=== PATIENT | male | born 1995 | race Two or more races ===

== ENCOUNTER 2019-07-11 23:19 | Emergency (ER) | payer SELFPAY ==
[~2019-07-11] VITALS: Ht 167.6 cm; Wt 68.9 kg
[2019-07-11 23:32] VITALS: BP 132/75
--- NOTE | 2019-07-11 23:34 | NUR ---
PT [facility] AND FRIENDS. C/O ETOH. PER FRIEND PT DRANK "A 40 OF BUDWEIRSER." PALCED ON MONIOTOR AND PULSE OX. ACCORDING TO FRIEND -ERIKA GRAHAM FRIEND KEPT HOLDING THE PT HE WOULD FALL. NO ACUTE DISTRESS NOTED. WILL CONTINUE TO MONITOR.
[2019-07-11 23:40] LABS: BASOPHILS % (AUTO) 0.4 % (0.0-2.0); EOSINOPHILS % (AUTO) 1.1 % (0.0-6.0); HEMATOCRIT 50 % (39-51); HEMOGLOBIN 17.1 g/dL (13.5-17.5); LYMPHOCYTES # (AUTO) 2.4 /CMM (0.8-4.8); MEAN CORPUSCULAR HGB CONC 34 g/dl (31.0-36.0); MEAN CORPUSCULAR VOLUME 90 fL (80-96); MONOCYTES # (AUTO) 0.9 /CMM (0.1-1.30); MONOCYTES % (AUTO) 15.6 % (2.0-12.0); NEUTROPHILS # (AUTO) 2.2 /CMM (1.8-8.9); NEUTROPHILS % (AUTO) 39.9 % (43.0-81.0); PLATELET COUNT (AUTO) 155 /CMM (150-450); RED BLOOD CELL COUNT(AUTO) 5.58 MIL/uL (4.5-6.0); WHITE BLOOD COUNT (AUTO) 5.6 K/uL (4.3-11.0)
[2019-07-11 23:47] LABS: CARBON DIOXIDE 21 mmol/L (21-32); CHLORIDE 105 mmol/L (98-107); CREATININE 0.7 mg/dL (0.6-1.3); GLUCOSE 95 mg/dL (74-106); POTASSIUM 3.3 mmol/L (3.5-5.1); SODIUM SERUM 141 mmol/L (136-145); UREA NITROGEN, BLOOD 11 mg/dL (7-18)
[2019-07-11 23:53] LABS: ALANINE AMINOTRANSFERASE 102 U/L (12-78); ALBUMIN 3.7 g/dL (3.4-5.0); ALCOHOL, BLOOD 412 mg/dL (0-0); ALKALINE PHOSPHATASE 100 U/L (46-116); ASPARTATE AMINOTRANSFERASE 99 U/L (15-37); BILIRUBIN,DIRECT 0.1 mg/dL (0.0-0.2); TOTAL PROTEIN, SERUM 8.4 g/dL (6.4-8.2)
[2019-07-11 23:55] LABS: SALICYLATE 1.1 mg/dL (2.8-20.0)
[2019-07-11 23:56] LABS: ACETAMINOPHEN < 2 ug/ml (10-30)
[2019-07-12 00:09] LABS: BILIRUBIN,TOTAL 0.4 mg/dL (0.2-1.0)
[2019-07-12 00:11] LABS: APPEARANCE,URINE Clear (CLEAR); BILIRUBIN,URINE Negative (NEGATIVE); BLOOD, URINE Trace-lysed Ery/uL (NEGATIVE); COLOR,URINE Yellow (YELLOW); KETONES,URINE Negative (NEGATIVE); LEUKOCYTE ESTERASE ,URINE Negative (NEGATIVE); NITRITE, URINE Negative (NEGATIVE); PROTEIN,URINE Negative (NEGATIVE); UGLUCOSE 100 MG/DL mg/dL (NEGATIVE); UROBILINOGEN,URINE 0.2 EU/dL (0.2)
--- NOTE | 2019-07-12 00:14 | NUR ---
PLACED ON 2L NC
[2019-07-12 00:17] LABS: EOSINOPHILS % (MANUAL) 2 % (0-4); MONOCYTES % (MANUAL) 15 % (0-11.0); NEUTROPHILS % (MANUAL) 40 (42-76)
[2019-07-12 00:18] LABS: LYMPHOCYTES % (MANUAL) 43 % (16-48)
[2019-07-12 00:23] LABS: BACTERIA,URINE Rare /HPF (None Seen); SQUAMOUS EPITHELIAL CELL,UR Few /HPF (None Seen); WBC,URINE NONE SEEN /HPF (0-3)
--- NOTE | 2019-07-12 02:30 | NUR ---
Patient discharged to home in stable condition. Written and verbal after care instructions given. Patient verbalizes understanding of instruction. Pt was picked up by his brother. Pt wheeled out to ED parking.
== END 2019-07-12 02:30 | disposition home or self-care (01) ==
LOC: ER 23:20
DX: F10.129 Alcohol abuse with intoxication, unspecified (principal); F12.10 Cannabis abuse, uncomplicated; Y90.8 Blood alcohol level of 240 mg/100 ml or more; Z60.2 Problems related to living alone
CPT/HCPCS: 36415; 80048; 80076; 80305; 80307; 80329; 81001; 82962; 85025; 99283; G0480; 81000-TC